=== PATIENT | female | born 1990 | race African-American/Black ===

== ENCOUNTER 2017-02-04 12:34 | Emergency (ER) | payer SELFPAY ==
[~2017-02-04] VITALS: Ht 160 cm; Wt 125.1 kg
[2017-02-04 13:32] LABS: HEMATOCRIT 38.4 % (36.0-46.0); MCH 20.9 PG (29.0-34.0); MCHC 30.5 G/DL (30.0-36.0); MCV 68.7 FL (83-99); MEAN PLAT.VOLUME 11.2 uM^3 (9.5-12.4); PLATELET COUNT 305 K/uL (156-360); RBC DIS.WIDTH-CV 14.7 % (11.8-14.6); RBC DIS.WIDTH-SD 35.7 % (39-53); RED BLOOD COUNT 5.59 M/uL (3.80-5.20); WHITE BLOOD COUNT 8.5 K/uL (4.1-10.2)
[2017-02-04 13:35] LABS: CHLORIDE 105 mEq/L (99-109); POTASSIUM 3.8 mEq/L (3.7-5.4); SODIUM 138 mEq/L (136-147)
[2017-02-04 13:37] LABS: GLUCOSE 99 mg/dL (70-99)
[2017-02-04 13:38] LABS: ANION GAP 8 MEQ/L (2-14)
[2017-02-04 13:41] LABS: GFR ESTIMATE (CALCULATED) > 59 mL/min/
[2017-02-04 13:42] LABS: UREA NITROGEN (BUN) 11 mg/dL (9-23)
[2017-02-04 13:49] LABS: QUANTITATIVE HCG < 4.0 MIU/ML
[2017-02-04 15:04] LABS: ADD MIUA? YES; BILIRUBIN NEGATIVE; BLOOD LARGE; COLOR YELLOW ((YELLOW)); GLUCOSE (STRIP) NEGATIVE; KETONES NEGATIVE; LEUKOCYTES LARGE; NITRITE NEGATIVE; PROTEIN (STRIP) 30; SPECIFIC GRAVITY 1.026 (1.000-1.030); UROBILINOGEN 0.2 MG/DL (0.2-1.0)
[2017-02-04 15:06] LABS: INTERNAL CONTROL VALID? YES
[2017-02-04 15:49] LABS: BACTERIA RARE /HPF; CASTS NONE SEEN /LPF; CRYSTALS NONE SEEN; EPITHELIAL CELLS RARE /HPF; MUCUS RARE /LPF; RED BLOOD CELLS 20-30 /HPF (0-5); UCUL ADDED? YES; WHITE BLOOD CELLS 30-40 /HPF (0-5)
[2017-02-04] MEDS ORDERED: KEFLEX500 MG PO (15:55)
[2017-02-04 16:03] VITALS: BP 136/76
[2017-02-05 13:25] LABS: CHLAMYDIA TRACHOMATIS NEGATIVE; NEISSERIA GONORRHOEAE NEGATIVE
== END 2017-02-04 16:03 | disposition home or self-care (01) ==
LOC: EME 12:34
PROVIDERS: Physician Assistant Medical
DX: N89.8 Other specified noninflammatory disorders of vagina (principal); N39.0 Urinary tract infection, site not specified; Z11.3 Encounter for screening for infections with a predominantly sexual mode of transmission; Z88.0 Allergy status to penicillin
CPT/HCPCS: 80048; 81003; 84702; 84703; 85027; 87077; 87086; 87210; 87491; 87591; 99281; 99284; J0696

== ENCOUNTER 2018-01-20 06:55 | Emergency (ER) | payer SELFPAY ==
[~2018-01-20] VITALS: Ht 160 cm; Wt 129.1 kg
[~2018-01-20 06:55] MED LIST: KEFLEX500 MG PO
[2018-01-20 07:52] LABS: CHLORIDE 106 mEq/L (99-109); POTASSIUM 4.4 mEq/L (3.7-5.4); SODIUM 139 mEq/L (136-147)
[2018-01-20 07:54] LABS: GLUCOSE 111 mg/dL (70-99)
[2018-01-20 07:58] LABS: CREATININE 0.9 mg/dL (0.6-1.3); GFR ESTIMATE (CALCULATED) > 59 mL/min/
[2018-01-20 07:59] LABS: UREA NITROGEN (BUN) 9 mg/dL (9-23)
[2018-01-20 08:01] LABS: BASOPHIL (%) 0.3 % (0-1); EOSINOPHIL (%) 2.6 % (0-5); EOSINOPHIL COUNT 0.3 K/uL (0-0.3); HEMATOCRIT 37.1 % (36.0-46.0); HEMOGLOBIN 11.7 G/DL (11.9-15.5); IMMATURE GRANULOCYTE (%) 0.3 % (0.0-0.7); LYMPHOCYTE (%) 18.8 % (15-42); LYMPHOCYTE COUNT 2.2 K/uL (1.0-2.8); MCH 20.9 PG (29.0-34.0); MCHC 31.5 G/DL (30.0-36.0); MCV 66.4 FL (83-99); MONOCYTE (%) 5.2 % (3-12); MONOCYTE COUNT 0.6 K/uL (0-0.8); NEUTROPHIL (%) 72.8 % (45-76); NEUTROPHIL COUNT 8.3 K/uL (1.8-6.4); PLATELET COUNT 321 K/uL (156-360); RBC DIS.WIDTH-CV 14.6 % (11.8-14.6); RBC DIS.WIDTH-SD 33.9 % (39-53); RED BLOOD COUNT 5.59 M/uL (3.80-5.20); URIC ACID 5.9 mg/dL (3.1-9.2); WHITE BLOOD COUNT 11.4 K/uL (4.1-10.2)
[2018-01-20 08:33] LABS: QUANTITATIVE HCG < 4.0 MIU/ML
[2018-01-20] MEDS ORDERED: PREDNISONE50 MG PO (09:02)
[2018-01-20] MEDS ORDERED: INDOMETHACIN50 MG PO (09:02)
[2018-01-20] MEDS ORDERED: PERCOCET 5/31 TABLET PO (09:02)
[2018-01-20 09:21] VITALS: BP 133/92
== END 2018-01-20 09:21 | disposition home or self-care (01) ==
LOC: EME 06:55
PROVIDERS: Emergency Medicine
DX: M79.601 Pain in right arm (principal); M06.4 Inflammatory polyarthropathy; M79.641 Pain in right hand; Z88.0 Allergy status to penicillin
CPT/HCPCS: 73090; 73130; 80048; 84550; 84702; 85025; 99281; 99284; J1885; J2270; J7512